=== PATIENT | female | born 1975 | race Caucasian/White ===

== ENCOUNTER → 2023-06-19 17:18 | Outpatient (REF) | payer BC, SELFPAY | LOC: HWWDC 17:18 | PROVIDERS: ATTENDING PHYSICIAN Obstetrics & Gynecology; FAMILY PHYSICIAN Family Medicine | DX: Z12.31 Encounter for screening mammogram for malignant neoplasm of breast (principal) | CPT/HCPCS: 77063; 77067 ==

== ENCOUNTER → 2023-10-21 06:22 | Day surgery (SDC) | payer BC, SELFPAY | LOC: GI 06:22 | PROVIDERS: ATTENDING PHYSICIAN Internal Medicine | DX: D50.9 Iron deficiency anemia, unspecified (principal); K57.30 Diverticulosis of large intestine without perforation or abscess without bleeding; K29.60 Other gastritis without bleeding; K31.89 Other diseases of stomach and duodenum | CPT/HCPCS: 45378; 43239; 88305; 88342 ==